=== PATIENT | female | born 1940 | race Caucasian/White ===

== ENCOUNTER 2016-12-11 05:37 | Inpatient (IN) | payer OTHER, MEDICARE ==
[~2016-12-11] VITALS: Ht 152.4 cm; Wt 59.0 kg
[~2016-12-11 05:37] MED LIST: [UNRECOGNIZED DRUG - REMARK]
[2016-12-11 05:39] VITALS: BP 139/74; PULSE 92; RESP 16; TEMP 98.7; O2SAT 97
[2016-12-11] MEDS ORDERED: OMEP20TA PO (05:50)
--- NOTE | 2016-12-11 06:12 | PD ---
HPI Chief Complaint: Abdominal Pain Time Seen by Provider: 06:04 Travel History International Travel<30 days: No Contact w/Intl Traveler<30days: No Traveled to known affect area: No History of Present Illness HPI The patient is a 76 year old female who presents to the [facility] emergency department with a history of abdominal pain that began on Sunday. The patient reports that she went to see her primary care physician and was given a prescription for omeprazole, however it has not been helping. The patient reports that her symptoms began after having some loose stool approximately a week ago. She then developed constipation since Sunday. When she began to have abdominal cramping and bilateral lower quadrants of the abdomen she went to her primary care physician. The patient reports that she last had a colonoscopy done 2 years ago which revealed polyps which were removed. She reports that this evening she began to have nausea and the abdominal pain that have been coming and going became constant. She denies having any vomiting. She reports having frequent belching. She reports having chills. She denies having any known fevers, cough, congestion, neck pain, chest pain, shortness of breath, urinary symptoms, or neurologic symptoms. FOR[facility]LY [facility] Past Medical History Narrative Medical The patient's past medical history is significant for Cancer: No Cardiovascular Problems: No Endocrine: No Genitourinary: No Immune Disorder: No Musculoskeletal: No Neurologic: Yes Psychiatric: No Reproductive: No Respiratory: No ?: Not Menopausal: Yes Past Surgical History Narrative Surgical The patient's past surgical history is significant for a hysterectomy. Abdominal Surgery: No Cardiac Surgery: No Ear Surgery: No Endocrine Surgery: No Eye Surgery: No Genitourinary Surgery: No Gynecologic Surgery: Yes (hysterecomy) Hysterectomy: Yes Oral Surgery: No Other Surgery: Yes Social History Alcohol Use: Yes (OCC) Tobacco Use: No Substance Use: No Allergies-Medications (Allergen,Severity, Reaction): Coded Allergies: codeine (Unverified Allergy, Mild, Itching, 12/11/16) penicillin G (Unverified Allergy, Unknown, 12/11/16) Reported Meds & Prescriptions Reported Meds & Active Scripts Active Reported Omeprazole 20 Mg Tab 20 Mg PO DAILY Review of Systems Except as stated in HPI: all other systems reviewed are Neg General / Constitutional: No: Fever Eyes: No: Visual changes HENT: No: Headaches Cardiovascular: No: Chest Pain or Discomfort Respiratory: No: Shortness of Breath Gastrointestinal: Positive: Nausea, Diarrhea, Abdominal Pain, Constipation, Changes in Bowel Habits, Indigestion, Loss of Appetite, No: Vomiting, Hematemesis, Hematochezia Genitourinary: No: Dysuria Musculoskeletal: No: Pain Skin: No Rash Neurologic: No: Weakness Psychiatric: No: Depression Endocrine: No: Polydipsia Hematologic/Lymphatic: No: Easy Bruising Physical Exam Narrative General: The patient is a well-developed well-nourished female in no acute distress. Head and Neck exam: Head is normocephalic atraumatic. Eyes: EOMI, pupils are equal round and reactive to light. Nose: Midline septum with pink mucous membranes Mouth: Dentition unremarkable. Moist mucus membranes. Posterior oropharynx is not erythematous. No tonsillar hypertrophy. Uvula midline. Airway patent. Neck: No palpable lymphadenopathy. No nuchal rigidity. No thyromegaly. Cardiovascular: Regular rate and rhythm without murmurs, gallops, or rubs. Lungs: Clear to auscultation bilaterally. No wheezes, rhonchi, or rales. Abdomen: Soft, with tenderness on palpation of bilateral lower quadrants of the abdomen worse in the left compared to the right. No point tenderness specifically on palpation of McBurney's point. No guarding, rebound, or rigidity. Negative Everett's sign. Normal bowel sounds are audible Extremities: No clubbing, cyanosis, or edema. 2+ pulses in all 4 extremities. No calf tenderness on palpation. Back: No costovertebral angle tenderness to palpation. Neurologic Exam: Grossly nonfocal. Skin Exam: No rash noted. Intact skin that is warm and dry. Data Data Last Documented VS Vital Signs Date Time Temp Pulse Resp B/P (MAP) Pulse Ox O2 Delivery O2 Flow Rate FiO2 12/11/16 05:39 98.7 92 16 139/74 (95) 97 Room Air Orders Orders Electrocardiogram (12/11/16 06:05) Complete Blood Count With Diff (12/11/16 06:05) Comprehensive Metabolic Panel (12/11/16 06:05) Troponin I (12/11/16 06:05) Prothrombin Time / Inr (Pt) (12/11/16 06:05) Act Partial Throm Time (Ptt) (12/11/16 06:05) Lipase (12/11/16 06:05) Urinalysis - C+S If Indicated (12/11/16 06:05) Magnesium (Mg) (12/11/16 06:05) Chest, Single Ap (12/11/16 06:05) Ct Abd/Pel W Iv Contrast(Rout) (12/11/16 06:05) Iv Access Insert/Monitor (12/11/16 06:05) Ecg Monitoring (12/11/16 06:05) Oximetry (12/11/16 06:05) Lactic Acid Sepsis Protocol (12/11/16 06:05) Sodium Chlorid 0.9% 500 Ml Inj (Ns 500 M (12/11/16 06:15) Ondansetron Inj (Zofran Inj) (12/11/16 06:15) Urine Culture (12/11/16 06:15) Labs Laboratory Tests Test 12/11/16 06:15 White Blood Count 11.3 TH/MM3 Red Blood Count 4.87 MIL/MM3 Hemoglobin 14.6 GM/DL Hematocrit 41.5 % Mean Corpuscular Volume 85.2 FL Mean Corpuscular Hemoglobin 30.0 PG Mean Corpuscular Hemoglobin Concent 35.3 % Red Cell Distribution Width 13.3 % Platelet Count 357 TH/MM3 Mean Platelet Volume 6.8 FL Neutrophils (%) (Auto) 81.0 % Lymphocytes (%) (Auto) 12.5 % Monocytes (%) (Auto) 5.5 % Eosinophils (%) (Auto) 0.6 % Basophils (%) (Auto) 0.4 % Neutrophils # (Auto) 9.2 TH/MM3 Lymphocytes # (Auto) 1.4 TH/MM3 Monocytes # (Auto) 0.6 TH/MM3 Eosinophils # (Auto) 0.1 TH/MM3 Basophils # (Auto) 0.0 TH/MM3 CBC Comment DIFF FINAL Differential Comment Prothrombin Time 10.6 SEC Prothromb Time International Ratio 1.0 RATIO Activated Partial Thromboplast Time 28.8 SEC Urine Color YELLOW Urine Turbidity HAZY Urine pH 7.0 Urine Specific [place] 1.023 Urine Protein 30 mg/dL Urine Glucose (UA) NEG mg/dL Urine Ketones NEG mg/dL Urine Occult Blood MOD Urine Nitrite NEG Urine Bilirubin NEG Urine Urobilinogen 2.0 MG/DL Urine Leukocyte Esterase SMALL Urine RBC 24 /hpf Urine WBC 3 /hpf Urine Squamous Epithelial Cells 1 /hpf Urine Amorphous Sediment RARE Urine Bacteria MOD /hpf Urine Mucus FEW /lpf Microscopic Urinalysis Comment CULTURE INDICATED Lactic Acid Level 2.2 mmol/L MDM Medical Decision Making Medical Screen Exam Complete: Yes Emergency Medical Condition: Yes Medical Record Reviewed: Yes Interpretation(s) Last Impressions Chest X-Ray 12/11/16 0605 Signed Impressions: Service Date/Time: Sunday, December 11, 2016 06:20 - CONCLUSION: Slight basilar parenchymal opacities Song Guzman MD Differential Diagnosis Diverticulitis, versus colitis, versus constipation Narrative Course During the course of the patients emergency department visit, the patients history, examination, and differential diagnosis were reviewed with the patient. The patient was placed on a front desk monitor with oximetry and frequent blood pressure monitoring. The patient had IV access obtained and blood work sent for analysis. A CT scan of the abdomen and pelvis was ordered. The patient was initially provided normal saline a 500 mL bolus 1, Zofran 4 mg IV. The patients laboratory studies were reviewed and remarkable for a white count of 11.3, hemoglobin 14.6, platelets 357 with neutrophils 81, lactic acid is elevated at 2.2. PT 10.6, INR 1.0, PTT 28.8, urinalysis shows 30 protein, moderate occult blood, small leukocyte esterase, 24 rbc's, moderate bacteria, culture indicated Radiology studies were reviewed and remarkable for a chest x-ray that shows slight basilar parenchymal opacities. The patient's case will be checked out to the oncoming emergency physician to disposition the patient based on the conclusion of the patient's workup. Diagnosis Primary Impression: Abdominal pain Qualified Codes: R10.30 - Lower abdominal pain, unspecified Etelvina Gracia MD Dec 11, 2016 06:12
[2016-12-11] MEDS ORDERED: SODIUM CHLORID 0.9% 500 ML INJ 500 ML IV ONE (06:15)
[2016-12-11] MEDS ORDERED: ONDANSETRON HCL 4 MG/2 ML VIAL IV PUSH ONE (06:15)
[2016-12-11 06:37] LABS: AUTOMATED NEUTROPHIL # 9.2 TH/MM3 (1.8-7.7); BASOPHIL % 0.4 % (0.0-2.0); EOSINOPHIL # 0.1 TH/MM3 (0-0.4); EOSINOPHIL % 0.6 % (0.0-4.0); HEMATOCRIT 41.5 % (35.0-46.0); HEMO FLAGS DIFF FINAL; LYMPH % 12.5 % (9.0-44.0); LYMPHOCYTE # 1.4 TH/MM3 (1.0-4.8); MEAN CELL VOLUME 85.2 FL (80.0-100.0); MEAN CORPUSCULAR HGB CONC 35.3 % (32.0-36.0); MONO % 5.5 % (0.0-8.0); PLATELET COUNT 357 TH/MM3 (150-450); RED BLOOD COUNT 4.87 MIL/MM3 (4.00-5.30); RED CELL DISTRIBUTION WIDTH 13.3 % (11.6-17.2); WHITE BLOOD COUNT 11.3 TH/MM3 (4.0-11.0)
--- NOTE | 2016-12-11 06:38 | RADRPT ---
EXAM DATE/TIME: 12/11/2016 06:20 [facility] COMPARISON: CHEST SINGLE AP, July 25, 2012, 4:48. INDICATIONS : Short of breath. MEDICAL HISTORY : None. SURGICAL HISTORY : None. ENCOUNTER: Initial ACUITY: 1 day PAIN SCORE: 0/10 LOCATION: Bilateral chest FINDINGS: There appears be minimal basilar parenchymal opacity, left worse than right. Cardiac contours are sta ble and satisfactory. There is stable mild asymmetric elevation of the right diaphragm. No evidence o f effusion. CONCLUSION: Slight basilar parenchymal opacities Song Guzman MD on December 11, 2016 at 6:36 Board Certified Radiologist. This report was verified electronically.
[2016-12-11 06:41] LABS: BACTERIA, URINE MOD /hpf; BLOOD, URINE MOD (NEG); COMMENT (UR) CULTURE INDICATED; CULTURE IF INDICATED CULTURE INDICATED; GLUCOSE,URINE NEG (NEG); KETONE, URINE NEG (NEG); MUCUS URINE FEW /lpf (OCC); NITRITE,URINE NEG (NEG); SQUAMOUS EPITHELIAL CELL URINE 1 /hpf (0-5); URINE COLOR YELLOW (YELLW/STRAW)
[2016-12-11 06:48] LABS: APTT (PATIENT) 28.8 SEC (24.3-30.1); PROTHROMBIN TIME - PATIENT 10.6 SEC (9.8-11.6)
[2016-12-11 06:57] LABS: ALT (GPT) 24 U/L (10-53); ANION GAP 9 MEQ/L (5-15); AST (GOT) 18 U/L (15-37); BICARBONATE 24.1 MEQ/L (21.0-32.0); BLOOD UREA NITROGEN 11 MG/DL (7-18); CHLORIDE 103 MEQ/L (98-107); GLOMERULAR FILTRATION RATE 66 ML/MIN (>89); MAGNESIUM 2.8 MG/DL (1.5-2.5); SODIUM (NA) 136 MEQ/L (136-145)
[2016-12-11 07:01] LABS: ALKALINE PHOSPHATASE 70 U/L (45-117); TOTAL BILIRUBIN ADULT 0.5 MG/DL (0.2-1.0)
[2016-12-11 07:15] VITALS: BP 145/80; PULSE 80; RESP 16; O2SAT 96
[2016-12-11] MEDS ORDERED: IOHEXOL 350 MG/ML 10 ML VIAL (for RAD DIAG) IVCONTRAST ONE (07:29)
[2016-12-11] MEDS ORDERED: metroNIDAZOLE 500 MG INJ 100 ML IV ONE (07:45)
[2016-12-11] MEDS ORDERED: CIPROFLOXACIN 400 MG PREMIX 200 ML IV ONE (07:45)
--- NOTE | 2016-12-11 07:53 | RADRPT ---
EXAM DATE/TIME: 12/11/2016 07:25 [facility] COMPARISON: CT ABDOMEN & PELVIS W CONTRAST, July 24, 2012, 14:38. INDICATIONS : Abdominal pain x3 days. IV CONTRAST: 90 cc Omnipaque 350 (iohexol) IV ORAL CONTRAST: No oral contrast ingested. RADIATION DOSE: 6.31 CTDIvol (mGy) MEDICAL HISTORY : None SURGICAL HISTORY : Hysterectomy. ENCOUNTER: Initial ACUITY: 3 days PAIN SCALE: 4/10 LOCATION: Bilateral abdomen TECHNIQUE: Volumetric scanning of the abdomen and pelvis was performed. Using automated exposure control and ad justment of the mA and/or kV according to patient size, radiation dose was kept as low as reasonably achievable to obtain optimal diagnostic quality images. DICOM format image data is available electro nically for review and comparison. FINDINGS: LOWER LUNGS: Minimal bibasilar groundglass opacities likely reflecting atelectasis. LIVER: Homogeneous density without lesion. There is no dilation of the biliary tree. No calcified gallston es. SPLEEN: Normal size without lesion. PANCREAS: Within normal limits. KIDNEYS: There are multiple bilateral cystic renal lesions. The 2 largest cystic lesions in the right kidney m easured 2.9 cm in the midpole and 1.4 cm near the superior pole anteriorly. These have minimally enla rged since remote prior examination of 2012. Remaining smaller somewhat more complex appearing cystic lesions in the inferior pole likely due to septations appear unchanged. Kidneys otherwise demonstrat e symmetrical enhancement without evidence for hydronephrosis. ADRENAL GLANDS: Within normal limits. VASCULAR: There is no aortic aneurysm. BOWEL/MESENTERY: Fluid is noted throughout the colon which does not appear distended. There is mild colonic wall thick ening and pericolonic stranding in the distal descending colon and sigmoid colon accentuated by incom plete distention. Very minimal diverticula are noted by CT this region. There is no pneumatosis or fr ee air. PRASHANTH and SMA are patent. No free fluid or drainable fluid collections. ABDOMINAL WALL: Within normal limits. RETROPERITONEUM: There is no lymphadenopathy. BLADDER: No wall thickening or mass. REPRODUCTIVE: Status post hysterectomy. INGUINAL: There is no lymphadenopathy or hernia. MUSCULOSKELETAL: Degenerative spondylosis of the lumbar spine secondary to dextroscoliosis. CONCLUSION: 1. Nondistended diffusely fluid-filled colon with mild colitis involving the distal descending and si gmoid colon without evidence for bowel infarction, perforation, or abscess. Very minimal diverticula by CT in this region. Differential considerations include diverticulitis versus developing or resolvi ng colitis, likely inflammatory or infectious in etiology as mesenteric vessels are patent. 2. Multiple bilateral renal cysts are. Several cysts in the right kidney have minimal enlarged in com parison to remote prior exam of 2012. This finding is nonspecific. Elio Mistry MD on December 11, 2016 at 7:39 Board Certified Radiologist. This report was verified electronically.
--- NOTE | 2016-12-11 08:18 | PD ---
Physical Exam Date Seen by Provider: Dec 11, 2016 Time Seen by Provider: 08:15 Narrative 76-year-old female came to the emergency room with history of abdominal pain and constipation. She was seen by the previous ER physician. Please refer to her notes regarding details of history and physical. Sign out was to follow-up on her CAT scan report. Patient has elevated WBC count with left shift and lactic acid. CAT scan report just came back showing colonic distention with possible early signs of diverticulitis. Patient continues to be uncomfortable. I have given her a dose of IV ciprofloxacin and Flagyl. I had a discussion with her and recommended admission. Her son and [id number] are in the room as well. They are comfortable with that plan. Awaiting for the hospitalist to call back. Data Data Last Documented VS Vital Signs Date Time Temp Pulse Resp B/P (MAP) Pulse Ox O2 Delivery O2 Flow Rate FiO2 12/11/16 07:15 80 16 145/80 (101) 96 Room Air 12/11/16 05:39 98.7 Orders Orders Electrocardiogram (12/11/16 06:05) Complete Blood Count With Diff (12/11/16 06:05) Comprehensive Metabolic Panel (12/11/16 06:05) Troponin I (12/11/16 06:05) Prothrombin Time / Inr (Pt) (12/11/16 06:05) Act Partial Throm Time (Ptt) (12/11/16 06:05) Lipase (12/11/16 06:05) Urinalysis - C+S If Indicated (12/11/16 06:05) Magnesium (Mg) (12/11/16 06:05) Chest, Single Ap (12/11/16 06:05) Ct Abd/Pel W Iv Contrast(Rout) (12/11/16 06:05) Iv Access Insert/Monitor (12/11/16 06:05) Ecg Monitoring (12/11/16 06:05) Oximetry (12/11/16 06:05) Lactic Acid Sepsis Protocol (12/11/16 06:05) Sodium Chlorid 0.9% 500 Ml Inj (Ns 500 M (12/11/16 06:15) Ondansetron Inj (Zofran Inj) (12/11/16 06:15) Urine Culture (12/11/16 06:15) Iohexol 350 Inj (Omnipaque 350 Inj) (12/11/16 07:29) Ciprofloxacin 400 Mg Premix (Cipro 400 M (12/11/16 07:45) Metronidazole 500 Mg Inj (Flagyl 500 Mg (12/11/16 07:45) Admit Order (Ed Use Only) (12/11/16 08:25) Labs Laboratory Tests Test 12/11/16 06:15 White Blood Count 11.3 TH/MM3 Red Blood Count 4.87 MIL/MM3 Hemoglobin 14.6 GM/DL Hematocrit 41.5 % Mean Corpuscular Volume 85.2 FL Mean Corpuscular Hemoglobin 30.0 PG Mean Corpuscular Hemoglobin Concent 35.3 % Red Cell Distribution Width 13.3 % Platelet Count 357 TH/MM3 Mean Platelet Volume 6.8 FL Neutrophils (%) (Auto) 81.0 % Lymphocytes (%) (Auto) 12.5 % Monocytes (%) (Auto) 5.5 % Eosinophils (%) (Auto) 0.6 % Basophils (%) (Auto) 0.4 % Neutrophils # (Auto) 9.2 TH/MM3 Lymphocytes # (Auto) 1.4 TH/MM3 Monocytes # (Auto) 0.6 TH/MM3 Eosinophils # (Auto) 0.1 TH/MM3 Basophils # (Auto) 0.0 TH/MM3 CBC Comment DIFF FINAL Differential Comment Prothrombin Time 10.6 SEC Prothromb Time International Ratio 1.0 RATIO Activated Partial Thromboplast Time 28.8 SEC Urine Color YELLOW Urine Turbidity HAZY Urine pH 7.0 Urine Specific [place] 1.023 Urine Protein 30 mg/dL Urine Glucose (UA) NEG mg/dL Urine Ketones NEG mg/dL Urine Occult Blood MOD Urine Nitrite NEG Urine Bilirubin NEG Urine Urobilinogen 2.0 MG/DL Urine Leukocyte Esterase SMALL Urine RBC 24 /hpf Urine WBC 3 /hpf Urine Squamous Epithelial Cells 1 /hpf Urine Amorphous Sediment RARE Urine Bacteria MOD /hpf Urine Mucus FEW /lpf Microscopic Urinalysis Comment CULTURE INDICATED Blood Urea Nitrogen 11 MG/DL Creatinine 0.83 MG/DL Random Glucose 133 MG/DL Total Protein 8.1 GM/DL Albumin 3.6 GM/DL Calcium Level 9.0 MG/DL Magnesium Level 2.8 MG/DL Alkaline Phosphatase 70 U/L Aspartate Amino Transf (AST/SGOT) 18 U/L Alanine Aminotransferase (ALT/SGPT) 24 U/L Total Bilirubin 0.5 MG/DL Sodium Level 136 MEQ/L Potassium Level 4.0 MEQ/L Chloride Level 103 MEQ/L Carbon Dioxide Level 24.1 MEQ/L Anion Gap 9 MEQ/L Estimat Glomerular Filtration Rate 66 ML/MIN Lactic Acid Level 2.2 mmol/L Troponin I LESS THAN 0.02 NG/ML Lipase 326 U/L [facility] Supervised Visit with JOSE RAFAEL: No Diagnosis Primary Impression: Abdominal pain Qualified Codes: R10.30 - Lower abdominal pain, unspecified Additional Impressions: Colitis possible early diverticulitis Admitting Information Admitting Physician Requests: Admit Scripts Metronidazole (Flagyl) 500 Mg Tab 500 MG PO TID for Infection, #15 TAB 0 Refills Prov: Laurie Hollis MD 12/13/16 Ciprofloxacin (Cipro) 500 Mg Tab 500 MG PO BID for Infection, #10 TAB 0 Refills Prov: Laurie Hollis MD 12/13/16 Rut Staley MD Dec 11, 2016 08:18
[2016-12-11 08:27] LABS: LACTIC ACID GHOST NOT REPORTABLE
--- NOTE | 2016-12-11 08:28 | HHI.HP ---
[facility] Admission Diagnosis acute colitis, elevated lactic acid, early diverticulitis Diagnoses: Chief Complaint: Abdominal pain, constipation Travel History International Travel<30 Days: No Contact w/Intl Traveler <30 Da: No Traveled to Known Affected Are: No Sepsis Criteria SIRS Criteria (2 or more): Heart rate over 90 Sepsis Criteria (SIRS+source): Infect source susp/known Severe Sepsis (+one): Lactate >2 History of Present Illness Ms. Bowden is a pleasant 76-year-old female with no significant medical history who presents to the emergency department due to abdominal pain that started about 5 days ago and constipation for 7 days. She reports having abdominal cramping and bilateral lower quadrant abdominal pain. She went to her primary care physician who prescribed omeprazole. However this did not relieve her symptoms. Patient reports nausea and vomiting since last night. She had colonoscopy 2 years ago which revealed some polyps. She denies fever or report some chills. She denies any headache, chest pain, shortness of breath, dysuria or hematuria. Review of Systems Except as stated in HPI: all other systems reviewed are Neg Past Family Social History Past Medical History No significant medical history Past Surgical History Hysterectomy Reported Medications Does not take any medication on a regular basis. Allergies: Coded Allergies: codeine (Unverified Allergy, Mild, Itching, 12/11/16) penicillin G (Unverified Allergy, Unknown, 12/11/16) Family History Father had lung cancer Social History Patient with smoking 20 years ago. She drinks alcohol occasionally. Physical Exam Vital Signs Vital Signs Date Time Temp Pulse Resp B/P (MAP) Pulse Ox O2 Delivery O2 Flow Rate FiO2 12/11/16 07:03 16 12/11/16 05:39 98.7 92 16 139/74 (95) 97 Room Air Physical Exam GENERAL: This is a well-nourished, well-developed patient, in no apparent distress. SKIN: No rashes, ecchymoses or lesions. Warm and dry. HEAD: Atraumatic. Normocephalic. No temporal or scalp tenderness. EYES: Pupils equal round and reactive. No injection or drainage. ENT: Nose without bleeding, purulent drainage or septal hematoma. Airway patent. NECK: Trachea midline. No lymphadenopathy. Supple, nontender, no meningeal signs. CARDIOVASCULAR: Regular rate and rhythm without murmurs, gallops, or rubs. No JVD. RESPIRATORY: Clear to auscultation. Breath sounds equal bilaterally. No wheezes , rales, or rhonchi. GASTROINTESTINAL: Abdomen soft, nondistended. No guarding. Mild tenderness during palpation of the abdomen especially on the left side. MUSCULOSKELETAL: Extremities without clubbing, cyanosis, or edema. NEUROLOGICAL: Awake and alert. Cranial nerves II through XII intact. No focal neurological deficits. Normal speech. Laboratory Laboratory Tests Test 12/11/16 06:15 White Blood Count 11.3 Red Blood Count 4.87 Hemoglobin 14.6 Hematocrit 41.5 Mean Corpuscular Volume 85.2 Mean Corpuscular Hemoglobin 30.0 Mean Corpuscular Hemoglobin Concent 35.3 Red Cell Distribution Width 13.3 Platelet Count 357 Mean Platelet Volume 6.8 Neutrophils (%) (Auto) 81.0 Lymphocytes (%) (Auto) 12.5 Monocytes (%) (Auto) 5.5 Eosinophils (%) (Auto) 0.6 Basophils (%) (Auto) 0.4 Neutrophils # (Auto) 9.2 Lymphocytes # (Auto) 1.4 Monocytes # (Auto) 0.6 Eosinophils # (Auto) 0.1 Basophils # (Auto) 0.0 CBC Comment DIFF FINAL Differential Comment Prothrombin Time 10.6 Prothromb Time International Ratio 1.0 Activated Partial Thromboplast Time 28.8 Urine Color YELLOW Urine Turbidity HAZY Urine pH 7.0 Urine Specific Selmer 1.023 Urine Protein 30 Urine Glucose (UA) NEG Urine Ketones NEG Urine Occult Blood MOD Urine Nitrite NEG Urine Bilirubin NEG Urine Urobilinogen 2.0 Urine Leukocyte Esterase SMALL Urine RBC 24 Urine WBC 3 Urine Squamous Epithelial Cells 1 Urine Amorphous Sediment RARE Urine Bacteria MOD Urine Mucus FEW Microscopic Urinalysis Comment CULTURE INDICATED Blood Urea Nitrogen 11 Creatinine 0.83 Random Glucose 133 Total Protein 8.1 Albumin 3.6 Calcium Level 9.0 Magnesium Level 2.8 Alkaline Phosphatase 70 Aspartate Amino Transf (AST/SGOT) 18 Alanine Aminotransferase (ALT/SGPT) 24 Total Bilirubin 0.5 Sodium Level 136 Potassium Level 4.0 Chloride Level 103 Carbon Dioxide Level 24.1 Anion Gap 9 Estimat Glomerular Filtration Rate 66 Lactic Acid Level 2.2 Troponin I LESS THAN 0.02 Lipase 326 Date/Time Source Procedure Growth Status 12/11/16 06:15 Urine Clean Catch Urine Culture Pending Received Result Diagram: 12/11/1661412/11/16614 Imaging Last Impressions Chest X-Ray 12/11/16604 Signed Impressions: Service Date/Time: Sunday, December 11, 2016 06:20 - CONCLUSION: Slight basilar parenchymal opacities Song Guzman MD Abdomen/Pelvis CT 12/11/16604 Signed Impressions: Service Date/Time: Sunday, December 11, 2016 07:25 - CONCLUSION: 1. Nondistended diffusely fluid-filled colon with mild colitis involving the distal descending and sigmoid colon without evidence for bowel infarction, perforation , or abscess. Very minimal diverticula by CT in this region. Differential considerations include diverticulitis versus developing or resolving colitis, likely inflammatory or infectious in etiology as mesenteric vessels are patent. 2. Multiple bilateral renal cysts are. Several cysts in the right kidney have minimal enlarged in comparison to remote prior exam of 2012. This finding is nonspecific. MD Larry Coyne VTE Risk Assessment Caprini VTE Risk Assessment: Mod/High Risk (score >= 2) Caprini Risk Assessment Model Point Value = 1 Point Value = 2 Point Value = 3 Point Value = 5 Age 41-60 Minor surgery BMI > 25 kg/m2 Swollen legs Varicose veins or History of unexplained or recurrent spontaneous Oral contraceptives or hormone replacement Sepsis (< 1 month) Serious lung disease, including pneumonia (< 1 month) Abnormal pulmonary function Acute myocardial infarction Congestive heart failure (< 1 month) History of inflammatory bowel disease Medical patient at bed rest Age 61-74 Arthroscopic surgery Major open surgery (> 45 min) Laparoscopic surgery (> 45 min) Malignancy Confined to bed (> 72 hours) Immobilizing plaster cast Central venous access Age >= 75 History of VTE Family history of VTE Factor V Leiden Prothrombin [id number] Lupus anticoagulant Anticardiolipin antibodies Elevated serum homocysteine Heparin-induced thrombocytopenia Other congenital or acquired thrombophilia Stroke (< 1 month) Elective arthroplasty Hip, pelvis, or leg fracture Acute spinal cord injury (< 1 month) Prophylaxis Regimen Total Risk Factor Score Risk Level Prophylaxis Regimen 0-1 Low Early ambulation 2 Moderate Order ONE of the following: *Sequential Compression Device (SCD) *Heparin 5000 units SQ BID 3-4 Higher Order ONE of the following medications: *Heparin 5000 units SQ TID *Enoxaparin/Lovenox 40 mg SQ daily (WT < 150 kg, CrCl > 30 mL/min) *Enoxaparin/Lovenox 30 mg SQ daily (WT < 150 kg, CrCl > 10-29 mL/min) *Enoxaparin/Lovenox 30 mg SQ BID (WT < 150 kg, CrCl > 30 mL/min) AND/OR *Sequential Compression Device (SCD) 5 or more Highest Order ONE of the following medications: *Heparin 5000 units SQ TID (Preferred with Epidurals) *Enoxaparin/Lovenox 40 mg SQ daily (WT < 150 kg, CrCl > 30 mL/min) *Enoxaparin/Lovenox 30 mg SQ daily (WT < 150 kg, CrCl > 10-29 mL/min) *Enoxaparin/Lovenox 30 mg SQ BID (WT < 150 kg, CrCl > 30 mL/min) AND *Sequential Compression Device (SCD) Assessment and Plan Problem List: (1) Diverticulitis ICD Code: K57.92 - Diverticulitis of intestine, part unspecified, without perforation or abscess without bleeding (2) Constipation ICD Code: K59.00 - Constipation, unspecified Assessment and Plan Ms. Bowden is a pleasant 76-year-old female with no significant past medical history who presents to the emergency department due to 5 day duration of abdominal pain and seven-day duration of constipation. Patient reported some chills but no fever. CT scan indicated possible diverticulitis versus colitis. Please note that patient denies any allergies to penicillin. - Probable diverticulitis - Keep patient on clear liquid diet. Normal saline at 100 cc per hour. - We'll continue ciprofloxacin 400 mg IV every 12 hours and Flagyl 500 mg every 8 hours IV. - If patient improves and remains afebrile, we'll consider switching to by mouth medications. - Patient is not allergic to penicillin. We'll consider either Cipro plus Flagyl or Augmentin tomorrow. - Constipation - We'll start patient on multiple when necessary medications for constipation. Full code. SCDs. If hospitalization expected to be greater than 48 hours consider pharmacological DVT prophylaxis. Physician Certification 2 Midnight Certification Type: Admission for Inpatient Services Order for Inpatient Services The services are ordered in accordance with Medicare regulations or non- Medicare payer requirements, as applicable. In the case of services not specified as inpatient-only, they are appropriately provided as inpatient services in accordance with the 2-midnight benchmark. Estimated LOS (days): 2 days is the estimated time the patient will need to remain in the hospital, assuming treatment plan goals are met and no additional complications. Post-Hospital Plan: Home Rosendo Fitzpatrick DO Dec 11, 2016 08:28
[2016-12-11] MEDS ORDERED: MORPHINE SULFATE 4 MG/ML INJ IV PUSH PRN (08:30)
[2016-12-11] MEDS ORDERED: NALOXONE HCL 0.4 MG/ML AMP IV PUSH PRN (08:30)
[2016-12-11] MEDS ORDERED: BISACODYL 10 MG SUPP RECTAL PRN (08:30)
[2016-12-11] MEDS ORDERED: LACTULOSE SYRUP 20 GM/30 ML CUP PO PRN (08:30)
[2016-12-11] MEDS ORDERED: ONDANSETRON HCL 4 MG/2 ML VIAL IVP PRN (08:30)
[2016-12-11] MEDS ORDERED: SODIUM CHLORIDE 0.9% FLUSH 10 ML FLUSH IV FLUSH PRN (08:30)
[2016-12-11] MEDS ORDERED: MAGNESIUM HYDROXIDE SUSP 30 ML CUP PO PRN (08:30)
[2016-12-11] MEDS ORDERED: SENNOSIDES 8.6 MG TAB PO PRN (08:30)
[2016-12-11] MEDS ORDERED: ACETAMINOPHEN 325 MG TAB PO PRN (08:30)
[2016-12-11] MEDS: DOCUSATE SODIUM 50 MG/SENNA 8.6 MG TAB PO SCH ×2 (09:00→19:54)
[2016-12-11] MEDS: SODIUM CHLORIDE 0.9% FLUSH 10 ML FLUSH IV FLUSH SCH ×2 (10:54→19:53)
[2016-12-11] MEDS: SODIUM CHLOR 0.9% 1000 ML INJ 1,000 ML IV SCH ×2 (10:54→19:56)
[2016-12-11 12:00] VITALS: BP 136/80; PULSE 84; RESP 18; TEMP 97.6; O2SAT 92
--- NOTE | 2016-12-11 13:31 | EKG ---
Date Performed: 12/11/2016 Time Performed: 06:45:49 PTAGE: 76 years EKG: Sinus rhythm NORMAL ECG PREVIOUS TRACING : 07/24/2012 20.54 Compared to prior tracing no significant change DOCTOR: Ruben Burleson Interpretating Date/Time 12/11/2016 13:27:57
[2016-12-11] MEDS: metroNIDAZOLE 500 MG INJ 100 ML IV SCH (16:22)
[2016-12-11] MEDS: CIPROFLOXACIN 400 MG PREMIX 200 ML IV SCH (19:53)
[2016-12-11 20:00] VITALS: BP 112/70; PULSE 82; RESP 18; TEMP 97.6; O2SAT 96
[2016-12-12] VITALS: BP 104/55; PULSE 71; RESP 18; TEMP 96.9; O2SAT 97
[2016-12-12] MEDS: metroNIDAZOLE 500 MG INJ 100 ML IV SCH ×3 (00:47→18:31)
[2016-12-12] MEDS: SODIUM CHLOR 0.9% 1000 ML INJ 1,000 ML IV SCH ×2 (06:05→18:34)
[2016-12-12 07:58] LABS: AUTOMATED NEUTROPHIL # 4.4 TH/MM3 (1.8-7.7); BASOPHIL # 0.1 TH/MM3 (0-0.2); BASOPHIL % 1.1 % (0.0-2.0); EOSINOPHIL # 0.1 TH/MM3 (0-0.4); EOSINOPHIL % 2.1 % (0.0-4.0); HEMATOCRIT 35.6 % (35.0-46.0); HEMO FLAGS DIFF FINAL; LYMPH % 25.3 % (9.0-44.0); LYMPHOCYTE # 1.8 TH/MM3 (1.0-4.8); MEAN CELL VOLUME 85.8 FL (80.0-100.0); MEAN CORPUSCULAR HEMOGLOBIN 29.8 PG (27.0-34.0); MEAN CORPUSCULAR HGB CONC 34.8 % (32.0-36.0); MONO % 9.7 % (0.0-8.0); NEUT % 61.8 % (16.0-70.0); PLATELET COUNT 286 TH/MM3 (150-450); RED BLOOD COUNT 4.15 MIL/MM3 (4.00-5.30); RED CELL DISTRIBUTION WIDTH 13.5 % (11.6-17.2); WHITE BLOOD COUNT 7.1 TH/MM3 (4.0-11.0)
[2016-12-12] MEDS: CIPROFLOXACIN 400 MG PREMIX 200 ML IV SCH ×2 (07:59→21:00)
[2016-12-12] MEDS: SODIUM CHLORIDE 0.9% FLUSH 10 ML FLUSH IV FLUSH SCH ×2 (07:59→21:00)
[2016-12-12 08:00] VITALS: BP 120/57; PULSE 59; RESP 20; TEMP 97.1; O2SAT 97
[2016-12-12] MEDS: DOCUSATE SODIUM 50 MG/SENNA 8.6 MG TAB PO SCH ×2 (08:00→21:00)
[2016-12-12 08:26] LABS: BICARBONATE 24.6 MEQ/L (21.0-32.0); POTASSIUM 3.7 MEQ/L (3.5-5.1)
[2016-12-12 12:00] VITALS: BP 131/72; PULSE 69; RESP 20; TEMP 96.9; O2SAT 95
[2016-12-12 16:00] VITALS: BP 137/65; PULSE 79; RESP 20; TEMP 97.5; O2SAT 99
[2016-12-12 20:05] VITALS: BP 117/56; PULSE 80; RESP 17; TEMP 97.5; O2SAT 95
--- NOTE | 2016-12-12 22:30 | HHI.PR ---
Subjective Remarks Patient reported continuing to have abdominal pain no nausea or vomiting I discussed with her in length in her therapy clinic with [facility] wants to go home I explained that as long as she still having the pain we need to keep her nothing by mouth continue iv antibiotic and slowly advance her diet as tolerated prior to let her go home, patient showed understanding Objective Vitals Vital Signs Date Time Temp Pulse Resp B/P (MAP) Pulse Ox O2 Delivery O2 Flow Rate FiO2 12/12/16 20:05 97.5 80 17 117/56 (76) 95 12/12/16 16:00 97.5 79 20 137/65 (89) 99 12/12/16 12:00 96.9 69 20 131/72 (91) 95 12/12/16 08:00 97.1 59 20 120/57 (78) 97 12/12/16 00:00 96.9 71 18 104/55 (71) 97 I/O 12/11/16 12/11/16 12/11/16 12/12/16 12/12/16 12/12/16 07:00 15:00 23:00 07:00 15:00 23:00 Intake Total 600 ml 460 ml 2202 ml 420 ml 1480 ml Output Total 200 ml 900 ml Balance 600 ml 260 ml 2202 ml 420 ml 580 ml Intake Oral 360 ml 120 ml 480 ml IV Total 600 ml 100 ml 2202 ml 300 ml 1000 ml Output Urine Total 200 ml 900 ml # Voids 4 # Bowel Movements 2 2 Result Diagram: 12/12/16 0700 12/12/16 0700 Objective Remarks GENERAL: This is a well-nourished, well-developed patient, in no apparent distress. SKIN: No rashes, warm and dry HEAD: Atraumatic. Normocephalic. EYES: Pupils equal round and reactive. Extraocular motions intact. No scleral icterus. ENT: Nose without bleeding, or drainage, Airway patent. NECK: Trachea midline. Supple CARDIOVASCULAR: Regular rate and rhythm without murmurs, gallops, or rubs. RESPIRATORY: Fair air entry bilaterally. No wheezes, rales, or rhonchi. GASTROINTESTINAL: Abdomen soft, still tenderness in the lower abdomen, nondistended. Positive bowel sounds MUSCULOSKELETAL: Extremities without clubbing, cyanosis, or edema. Pedal pulses appreciated NEUROLOGICAL: Awake and alert. Moves all extremity. Normal speech.no focal neurological deficit A/P Problem List: (1) Diverticulitis ICD Code: K57.92 - Diverticulitis of intestine, part unspecified, without perforation or abscess without bleeding (2) Constipation ICD Code: K59.00 - Constipation, unspecified Assessment and Plan Ms. Bowden is a pleasant 76-year-old female with no significant past medical history who presents to the emergency department due to 5 day duration of abdominal pain and seven-day duration of constipation. Patient reported some chills but no fever. CT scan indicated possible diverticulitis versus colitis. Please note that patient denies any allergies to penicillin. - Probable diverticulitis -Advance a tentatively to full liquid diet and reassess in the morning. Continue Normal saline at 100 cc per hour. - We'll continue ciprofloxacin 400 mg IV every 12 hours and Flagyl 500 mg every 8 hours IV. - If patient improves and remains afebrile, we'll consider switching to by mouth medications. - Patient is not allergic to penicillin. We'll consider Cipro plus Flagyl - Constipation -May start bowel regimen later when she start eating Full code. SCDs. If hospitalization expected to be greater than 48 hours consider pharmacological DVT prophylaxis. Discharge Planning In the next 24-48 hours once she is able to tolerate by mouth no abdominal pain no fever she can go on by mouth Samantha Rodriguez MD Dec 12, 2016 22:30
[2016-12-12 23:51] VITALS: BP 107/58; PULSE 73; RESP 18; TEMP 98; O2SAT 94
[2016-12-13] MEDS: metroNIDAZOLE 500 MG INJ 100 ML IV SCH ×2 (00:33→10:17)
[2016-12-13] MEDS: SODIUM CHLOR 0.9% 1000 ML INJ 1,000 ML IV SCH ×2 (05:30→08:26)
[2016-12-13 08:00] VITALS: BP 143/71; PULSE 70; RESP 19; TEMP 97.8; O2SAT 95
[2016-12-13] MEDS: CIPROFLOXACIN 400 MG PREMIX 200 ML IV SCH (08:23)
[2016-12-13] MEDS: SODIUM CHLORIDE 0.9% FLUSH 10 ML FLUSH IV FLUSH SCH (08:25)
[2016-12-13] MEDS: DOCUSATE SODIUM 50 MG/SENNA 8.6 MG TAB PO SCH ×2 (08:26→08:59)
[2016-12-13] MEDS ORDERED: CIPR-9 PO (10:56)
[2016-12-13] MEDS ORDERED: METR-1 PO (10:56)
--- NOTE | 2016-12-13 10:57 | HHI.DCPOC ---
Discharge Care Plan Diagnosis: (1) Abdominal pain (2) Diverticulitis Goals to Promote Your Health * To prevent worsening of your condition and complications * To maintain your health at the optimal level Directions to Meet Your Goals Take your medications as prescribed Follow your dietary instruction Follow activity as directed Keep your appointments as scheduled Take your immunizations and boosters as scheduled If your symptoms worsen call your PCP, if no PCP go to Urgent Care Center or Emergency Room Smoking is Dangerous to Your Health. Avoid second hand smoke Call the 24-hour hour crisis hotline for domestic abuse at Laurie Hollis MD Dec 13, 2016 10:57
--- NOTE | 2016-12-13 11:01 | HHI.DS ---
Discharge Summary Admission Date Dec 11, 2016 at 08:27 Discharge Date: Dec 13, 2016 Admitting Diagnosis acute colitis, elevated lactic acid, early diverticulitis (1) Diverticulitis ICD Code: K57.92 - Diverticulitis of intestine, part unspecified, without perforation or abscess without bleeding (2) Constipation ICD Code: K59.00 - Constipation, unspecified Procedures None Brief History - From Admission History of present illness from the admitting physician Ms. Bowden is a pleasant 76-year-old female with no significant medical history who presents to the emergency department due to abdominal pain that started about 5 days ago and constipation for 7 days. She reports having abdominal cramping and bilateral lower quadrant abdominal pain. She went to her primary care physician who prescribed omeprazole. However this did not relieve her symptoms. Patient reports nausea and vomiting since last night. She had colonoscopy 2 years ago which revealed some polyps. She denies fever or report some chills. She denies any headache, chest pain, shortness of breath, dysuria or hematuria. CBC/BMP: 12/12/16 0700 12/12/16 0700 Significant Findings Laboratory Tests Test 12/11/16 06:15 12/11/16 11:38 12/12/16 07:00 White Blood Count 11.3 TH/MM3 (4.0-11.0) Mean Platelet Volume 6.8 FL (7.0-11.0) 6.9 FL (7.0-11.0) Neutrophils (%) (Auto) 81.0 % (16.0-70.0) Neutrophils # (Auto) 9.2 TH/MM3 (1.8-7.7) Urine Turbidity HAZY (CLEAR) Urine Protein 30 mg/dL (NEG-TRACE) Urine Occult Blood MOD (NEG) Urine Leukocyte Esterase SMALL (NEG) Urine RBC 24 /hpf (0-3) Urine Bacteria MOD /hpf (NONE) Urine Mucus FEW /lpf (OCC) Random Glucose 133 MG/DL (74-106) Magnesium Level 2.8 MG/DL (1.5-2.5) Estimat Glomerular Filtration Rate 66 ML/MIN (>89) 75 ML/MIN (>89) Lactic Acid Level 2.2 mmol/L (0.4-2.0) Troponin I LESS THAN 0.02 NG/ML Monocytes (%) (Auto) 9.7 % (0.0-8.0) Calcium Level 8.3 MG/DL (8.5-10.1) Chloride Level 109 MEQ/L (98-107) Imaging Last Impressions Chest X-Ray 12/11/16604 Signed Impressions: Service Date/Time: Sunday, December 11, 2016 06:20 - CONCLUSION: Slight basilar parenchymal opacities Song Guzman MD Abdomen/Pelvis CT 12/11/16604 Signed Impressions: Service Date/Time: Sunday, December 11, 2016 07:25 - CONCLUSION: 1. Nondistended diffusely fluid-filled colon with mild colitis involving the distal descending and sigmoid colon without evidence for bowel infarction, perforation , or abscess. Very minimal diverticula by CT in this region. Differential considerations include diverticulitis versus developing or resolving colitis, likely inflammatory or infectious in etiology as mesenteric vessels are patent. 2. Multiple bilateral renal cysts are. Several cysts in the right kidney have minimal enlarged in comparison to remote prior exam of 2012. This finding is nonspecific. Elio Mistry MD PE at Discharge GENERAL: This is a well-nourished, well-developed patient, in no apparent distress. CARDIOVASCULAR: Normal rate and regular rhythm without murmurs, gallops, or rubs. RESPIRATORY: Good respiratory efforts. Breath sounds equal and clear to auscultation bilaterally. GASTROINTESTINAL: Abdomen soft, non-tender, non-distended. Normal active bowel sounds MUSCULOSKELETAL: Extremities without cyanosis, or edema. NEURO: Alert & Oriented x4 to person, place, time, situation. Moves all ext x4 PSYCH: Appropriate mood and affect. Pt update on day of discharge Patient reports she is feeling better. Tolerated liquid diet yesterday but states she doesn't have an appetite today. She will try lunch. Hospital Course 76-year-old female with no significant past medical history who presents to the emergency department due to 5 day duration of abdominal pain and seven-day duration of constipation. Patient reported some chills but no fever. CT scan indicated possible diverticulitis versus colitis. Patient was admitted and treated for probable diverticulitis with ciprofloxacin and Flagyl. Based on further conversation with the patient, it appears she is on a diet that is high and she is content and she tends to get constipated. Patient given IV fluid for hydration. Her symptoms improved. She is discharged on oral Cipro and Flagyl to continue treatment for diverticulitis. Extensive discussion with the patient regarding proper diet for diverticular disease. She was advised on a high-fiber diet and to avoid small seeds. She is advised to follow up outpatient with her PCP and GI. The patient can be discharged home today if she can tolerate lunch. Pt Condition on Discharge: Good Discharge Disposition: Discharge Home Discharge Time: <= 30 minutes Discharge Instructions DIET: Follow Instructions for: High Fiber Diet Activities you can perform: Regular-No Restrictions Follow up Referrals: PCP Follow-up New Medications: Ciprofloxacin (Cipro) 500 Mg Tab 500 MG PO BID for Infection, #10 TAB 0 Refills Metronidazole (Flagyl) 500 Mg Tab 500 MG PO TID for Infection, #15 TAB 0 Refills Continued Medications: Omeprazole (Omeprazole) 20 Mg Tab 20 MG PO DAILY, #30 TAB 0 Refills Laurie Hollis MD Dec 13, 2016 11:01
[2016-12-13 12:00] VITALS: BP 147/72; PULSE 66; RESP 19; TEMP 97.5; O2SAT 95
[2016-12-13] MEDS ORDERED: CALCIUM CARBONATE 500 MG CHEWABLE TAB CHEW ONE (13:00)
[2016-12-13 16:00] VITALS: BP 116/59; PULSE 80; RESP 19; TEMP 97.9; O2SAT 98
== END 2016-12-13 17:37 | disposition home or self-care (01) | DRG 392 ==
LOC: NEPE 05:37 → NEDA 08:27 → N07B 10:11
PROVIDERS: ADMIT Family Medicine; ATTEND Family Medicine
DX: K57.92 Diverticulitis of intestine, part unspecified, without perforation or abscess without bleeding (principal); K59.00 Constipation, unspecified; Z87.891 Personal history of nicotine dependence
CPT/HCPCS: 71010; 74177; 80048; 80053; 81001; 83605; 83690; 83735; 84484; 85025; 85610; 85730; 87077; 87086; 87186; 93005; 96361; 96374; 96375; J0744; J2405; J7030; J7040; Q9967